=== PATIENT | male | born 1990 | race Caucasian/White ===

== ENCOUNTER 2017-10-10 23:32 | Emergency (ER) | payer SELFPAY ==
[~2017-10-10] VITALS: Ht 157.5 cm; Wt 109.0 kg
[2017-10-11 00:40] LABS: CHLORIDE 103 mEq/L (98-107)
[2017-10-11 00:42] LABS: BASOPHILS % 0.4 % (0.0-2.0); EOSINOPHILS % 0.8 % (0.0-5.0); HEMATOCRIT. 44.5 % (42.0-52.0); HEMOGLOBIN. 15.6 g/dL (14.0-18.0); MEAN CORPUSCULAR HEMOGLOBIN 31.9 pg (28.0-32.0); MEAN CORPUSCULAR VOLUME 91.3 fL (80.0-94.0); MEAN PLATELET VOLUME 8.1 fl (7.4-10.4); MONOCYTES % 11.3 % (2.0-8.0); NEUTROPHILS % 63.5 % (40.0-76.0); PLATELET 330 x1000/uL (130-400); RED BLOOD CELL COUNT 4.88 mill/uL (4.7-6.1); RED CELL DISTRIBUTION WIDTH 13.9 % (11.6-14.6)
[2017-10-11 00:43] LABS: ETHANOL BLOOD < 10 mg/dL
[2017-10-11] MEDS ORDERED: SODIUM CHLORIDE 0.9% 1,000 ML IV ONE (00:54)
[2017-10-11] MEDS ORDERED: ASPIRIN 81MG TABLET PO ONE (01:00)
[2017-10-11 01:33] LABS: PROTHROMBIN TIME 10.4 sec (9.4-11.6)
[2017-10-11 01:34] LABS: CLARITY URINE CLEAR (CLEAR); COLOR URINE YELLOW (YELLOW); KETONES URINE NEGATIVE (NEGATIVE); LEUKOCYTE ESTERASE URINE NEGATIVE (NEGATIVE); NITRITE URINE NEGATIVE (NEGATIVE); OCCULT BLOOD URINE 1+ (NEGATIVE); PH URINE 6.5 (4.5-8.0); PROTEIN URINE NEGATIVE (NEGATIVE); SPECIFIC GRAVITY URINE 1.017 (1.005-1.030)
[2017-10-11 02:09] LABS: *AMPHETAMINES SCREEN URINE NEGATIVE (NEGATIVE); *BARBITURATES SCREEN URINE NEGATIVE (NEGATIVE); *BENZODIAZEPINES SCREEN URINE NEGATIVE (NEGATIVE)
[2017-10-11 02:10] LABS: *COCAINE SCREEN URINE PRESUMTIVE POSITIVE (NEGATIVE); CANNABINOID URINE SCREEN NEGATIVE (NEGATIVE); METHADONE URINE SCREEN NEGATIVE (NEGATIVE); OPIATES URINE SCREEN NEGATIVE (NEGATIVE); PHENCYCLIDINE URINE SCREEN NEGATIVE (NEGATIVE)
[2017-10-11 03:07] VITALS: BP 110/65
== END 2017-10-11 04:02 | disposition home or self-care (01) ==
LOC: ER 23:32
DX: T40.5X1A Poisoning by cocaine, accidental (unintentional), initial encounter (principal); G47.00 Insomnia, unspecified; R00.2 Palpitations; F17.200 Nicotine dependence, unspecified, uncomplicated; Z79.82 Long term (current) use of aspirin; R79.1 Abnormal coagulation profile; Z79.899 Other long term (current) drug therapy; Y92.89 Other specified places as the place of occurrence of the external cause
CPT/HCPCS: 36415; 71045; 80053; 80305; 81003; 83690; 83735; 83880; 84484; 85025; 85610; 93005; 96360; 96361; 99285; G0482; J7030; Z7610

== ENCOUNTER 2018-04-17 00:48 | Emergency (ER) | payer SELFPAY ==
[~2018-04-17] VITALS: Ht 157.5 cm; Wt 93.0 kg
[2018-04-17] MEDS ORDERED: SODIUM CHLORIDE 0.9% 1,000 ML IV ONE (02:15)
[2018-04-17] MEDS ORDERED: VISCOUS LIDOCAINE 2% 15 ML UDC MM ONE (02:30)
[2018-04-17] MEDS ORDERED: IBUPROFEN 600MG TABLET PO ONE (02:30)
[2018-04-17 03:30] LABS: BASOPHILS % 0.5 % (0.0-2.0); EOSINOPHILS % 1.7 % (0.0-5.0); HEMOGLOBIN. 14.8 g/dL (14.0-18.0); LYMPHOCYTES % 32.5 % (20.0-50.0); MEAN CORPUSCULAR HEMOGLOBIN 30.8 pg (28.0-32.0); MEAN CORPUSCULAR VOLUME 91.9 fL (80.0-94.0); MEAN PLATELET VOLUME 8.6 fl (7.4-10.4); NEUTROPHILS % 53.3 % (40.0-76.0); PLATELET 285 x1000/uL (130-400); RED BLOOD CELL COUNT 4.79 mill/uL (4.7-6.1); RED CELL DISTRIBUTION WIDTH 13.6 % (11.6-14.6)
[2018-04-17 03:46] LABS: CHLORIDE 103 mEq/L (98-107)
[2018-04-17] MEDS ORDERED: POTASSIUM CHLORIDE 20MEQ TABLET SR PO ONE (04:00)
[2018-04-17 04:50] LABS: *AMPHETAMINES SCREEN URINE NEGATIVE (NEGATIVE); *BARBITURATES SCREEN URINE NEGATIVE (NEGATIVE); *BENZODIAZEPINES SCREEN URINE NEGATIVE (NEGATIVE); *COCAINE SCREEN URINE PRESUMTIVE POSITIVE (NEGATIVE); CANNABINOID URINE SCREEN NEGATIVE (NEGATIVE); METHADONE URINE SCREEN NEGATIVE (NEGATIVE); OPIATES URINE SCREEN NEGATIVE (NEGATIVE); PHENCYCLIDINE URINE SCREEN NEGATIVE (NEGATIVE)
[2018-04-17 04:54] VITALS: BP 141/87
== END 2018-04-17 05:09 | disposition home or self-care (01) ==
LOC: ER 00:48
DX: K12.0 Recurrent oral aphthae (principal); R00.0 Tachycardia, unspecified; F14.10 Cocaine abuse, uncomplicated; F17.200 Nicotine dependence, unspecified, uncomplicated
CPT/HCPCS: 36415; 71045; 80048; 80305; 83605; 84443; 85025; 93005; 99285; G0482; J7030

== ENCOUNTER 2019-01-12 00:25 | Emergency (ER) | payer SELFPAY ==
[~2019-01-12] VITALS: Ht 165.1 cm; Wt 88.0 kg
[2019-01-12 01:52] VITALS: BP 126/74
== END 2019-01-12 03:35 | disposition left against medical advice (07) ==
LOC: ER 00:25
DX: Z53.21 Procedure and treatment not carried out due to patient leaving prior to being seen by health care provider (principal)

== ENCOUNTER 2019-05-24 20:33 | Emergency (ER) | payer SELFPAY ==
[~2019-05-24] VITALS: Ht 160 cm; Wt 91.0 kg
[2019-05-25] MEDS ORDERED: IBUPROFEN 600MG TABLET PO ONE (03:00)
[2019-05-25 03:06] VITALS: BP 125/74
== END 2019-05-25 05:20 | disposition left against medical advice (07) ==
LOC: ER 20:33
DX: S62.124A Nondisplaced fracture of lunate [semilunar], right wrist, initial encounter for closed fracture (principal); M25.512 Pain in left shoulder; M54.9 Dorsalgia, unspecified; W10.8XXA Fall (on) (from) other stairs and steps, initial encounter; Y93.89 Activity, other specified; Y92.018 Other place in single-family (private) house as the place of occurrence of the external cause
CPT/HCPCS: 73200; 99284

== ENCOUNTER 2019-09-08 22:25 | Emergency (ER) | payer SELFPAY ==
[~2019-09-08] VITALS: Ht 160 cm; Wt 111.0 kg
[2019-09-09 00:34] VITALS: BP 134/67
== END 2019-09-09 00:35 | disposition home or self-care (01) ==
LOC: ER 22:25
DX: T20.44XA Corrosion of unspecified degree of nose (septum), initial encounter (principal); S00.31XA Abrasion of nose, initial encounter; X58.XXXA Exposure to other specified factors, initial encounter; Y93.89 Activity, other specified; Y92.89 Other specified places as the place of occurrence of the external cause; Y99.8 Other external cause status
CPT/HCPCS: 99283

== ENCOUNTER 2019-10-13 14:24 | Emergency (ER) | payer SELFPAY ==
[~2019-10-13] VITALS: Ht 160 cm; Wt 109.0 kg
[2019-10-13] MEDS ORDERED: BACITRACIN ZINC OINT UDPKT TOP ONE (15:30)
[2019-10-13 15:43] VITALS: BP 143/92
== END 2019-10-13 15:46 | disposition left against medical advice (07) ==
LOC: ER 14:24
DX: S50.311A Abrasion of right elbow, initial encounter (principal); S09.90XA Unspecified injury of head, initial encounter; Y04.0XXA Assault by unarmed brawl or fight, initial encounter; Y93.89 Activity, other specified; Y92.89 Other specified places as the place of occurrence of the external cause; Y99.8 Other external cause status
CPT/HCPCS: 99281

== ENCOUNTER 2019-10-13 17:37 | Emergency (ER) | payer SELFPAY ==
[~2019-10-13] VITALS: Ht 160 cm; Wt 109.0 kg
[2019-10-13 17:47] VITALS: BP 152/89
[2019-10-13] MEDS ORDERED: BACITRACIN ZINC OINT UDPKT TOP NR (19:30)
== END 2019-10-13 19:43 | disposition home or self-care (01) ==
LOC: ER 17:37
DX: S00.93XA Contusion of unspecified part of head, initial encounter (principal); S40.812A Abrasion of left upper arm, initial encounter; Y08.89XA Assault by other specified means, initial encounter; Y93.89 Activity, other specified; Y92.89 Other specified places as the place of occurrence of the external cause; Y99.8 Other external cause status
CPT/HCPCS: 70486; 99285

== ENCOUNTER 2021-06-28 17:41 | Emergency (ER) | payer SELFPAY ==
[~2021-06-28] VITALS: Ht 162.6 cm; Wt 79.0 kg
[2021-06-28 17:55] VITALS: BP 123/72
[2021-06-28] MEDS ORDERED: IBUPROFEN 600MG TABLET PO ONE (21:00)
== END 2021-06-28 21:36 | disposition home or self-care (01) ==
LOC: ER 17:41
DX: M79.10 Myalgia, unspecified site (principal); T50.B95A Adverse effect of other viral vaccines, initial encounter; Y92.9 Unspecified place or not applicable
CPT/HCPCS: 93005; 99283

== ENCOUNTER 2021-06-29 01:49 | Emergency (ER) | payer SELFPAY ==
[~2021-06-29] VITALS: Ht 162.6 cm; Wt 77.0 kg
[2021-06-29 02:11] VITALS: BP 132/76
[2021-06-29] MEDS ORDERED: ACETAMINOPHEN 325MG TABLET PO ONE (02:30)
== END 2021-06-29 02:25 | disposition home or self-care (01) ==
LOC: ER 02:20
DX: M79.18 Myalgia, other site (principal); Z87.891 Personal history of nicotine dependence
CPT/HCPCS: 99282

== ENCOUNTER 2021-08-29 09:42 | Emergency (ER) | payer MEDICAID ==
[~2021-08-29] VITALS: Ht 165.1 cm; Wt 79.0 kg
[2021-08-29] MEDS: HYDROCODONE/ACETAMINOPHEN 5/325MG TABLET PO ONE ×2 (10:10→10:17)
[2021-08-29 10:17] VITALS: BP 139/119
[2021-08-29] MEDS ORDERED: HYDR-4001 MT (11:34)
== END 2021-08-29 12:08 | disposition home or self-care (01) ==
LOC: ER 09:42
DX: S62.301A Unspecified fracture of second metacarpal bone, left hand, initial encounter for closed fracture (principal); V49.9XXA Car occupant (driver) (passenger) injured in unspecified traffic accident, initial encounter; Y93.89 Activity, other specified; Y92.89 Other specified places as the place of occurrence of the external cause; Y99.8 Other external cause status
CPT/HCPCS: 29125; 73090; 73130; 99284; A4565